=== PATIENT | male | born 1960 | race Hispanic/Latino ===

== ENCOUNTER 2021-02-18 09:47 | Day surgery (SDC) | payer BC ==
[2021-02-18] MEDS: LIDOCAINE 1% MPF 30 ML VIAL ONE ×2 (10:05→10:50)
[2021-02-18] MEDS: HEPARIN 5000 UNIT/ML 1 ML VIAL ONE ×3 (10:07→11:06)
[2021-02-18 10:13] VITALS: O2SAT 100
[2021-02-18] MEDS: CEFAZOLIN/NS 1gm 1 GM/50 ML BAG ONE ×3 (10:18→10:37)
[2021-02-18] MEDS ORDERED: NS 0.9% VIAL 20 ML ONE (10:26)
[2021-02-18] MEDS ORDERED: ACETAMINOPHEN 500 MG TAB ONE (10:33)
[2021-02-18] MEDS ORDERED: NA CHLORIDE 0.9% 1,000 ML ONE (10:33)
--- NOTE | 2021-02-18 11:33 | RAD REPORT ---
EXAM DESCRIPTION: RAD - Fluoroscopy <1 Hour - 02/18/2021 11:21 am CLINICAL HISTORY: Device placement central venous catheter placement FINDINGS: A central venous catheter was placed into the superior vena cava.4 fluoroscopic spot image s are submitted. The examination was performed by Dr. Epperson Fluoroscopy time 0.3 minutes
--- NOTE | 2021-02-18 11:44 | RAD REPORT ---
EXAM DESCRIPTION: KIMBERLIWoodt Single View02/18/2021 11:39 am CLINICAL HISTORY: Device placement/central venous catheter placement IMPRESSION: Central venous catheter with its tip in the superior vena cava No pneumothorax
--- NOTE | 2021-02-18 11:55 | OP ---
Date of Procedure: 02/18/2021 Surgeon: Rohit Epperson MD Fisheries Specialist: JIGAR Priest Preoperative Diagnosis: Rectal cancer. Postoperative Diagnosis: Rectal cancer. Procedure: Placement of right IJ Port-A-Cath and interpretation of intraoperative fluoroscopy. Estimated Blood Loss: Minimal. Specimen: None. Findings: Normal anatomy. Anesthesia: General. Complications: None. Disposition: The patient tolerated the procedure in stable condition and taken to Recovery in good g eneral condition. Procedure In Detail: The patient was brought to the OR and placed in supine position. General anest hesia begun. The patient was prepped and draped in usual sterile fashion. Lidocaine 1% infiltrated locally. An 18-gauge needle was used to access the right IJ vein. Guidewire was passed. Position w as confirmed with fluoroscopy. A 3 cm counter incision was made on the right anterior chest. Pocket created. Tunneling device was used to tunnel the catheter between the 2 wounds. Seldinger techniqu e was used and tip of the catheter placed in the SVC under direct vision and fluoroscopy and then cut to appropriate size and attached to the Port-A-Cath device. Port-A-Cath device was attached to the subcutaneous tissue with 0 Vicryl and then 3-0 chromic used to approximate the subcutaneous tissue an d close the skin. Port aspirated of blood, flushed with heparin, and then packed with heparin. Ster ile dressing applied. The patient was awakened and taken to Recovery in good general condition. [place] st x-ray has been ordered. If the chest x-ray is negative, the patient will be discharged to home. Disposition: Home. Condition: Stable. Discharge Instructions: Resume home medications and diet. Activity as tolerated. No heavy lifting. Remove outer dressing in 2-3 days. Shower. Keep Steri-Strips on at all times. Follow up in [place] in 2 weeks. Call for appointment and follow up with Dr. Henry next week for chemotherapy. /FOREST Voice ID: [id number] Report ID: [id number]
[2021-02-18 12:49] VITALS: BP 158/84; TEMP 96.8
== END 2021-02-18 12:53 | disposition home or self-care (01) ==
LOC: OR 09:47
PROVIDERS: ATTEND Surgery
PROC: 0JH60WZ Insertion of Totally Implantable Vascular Access Device into Chest Subcutaneous Tissue and Fascia, Open Approach (ICD-10-PCS; principal; 2021-02-18 10:30)
DX: C19 Malignant neoplasm of rectosigmoid junction (principal); Z20.822 Contact with and (suspected) exposure to COVID-19
CPT/HCPCS: 71045; 76000; 82947; 93005; C1788; J0690; J1644; J7030; U0003

== ENCOUNTER 2021-06-30 08:45 | Day surgery (SDC) | payer BC, OTHER ==
[2021-06-30] MEDS ORDERED: NA CHLORIDE 0.9% 1,000 ML ONE (09:14)
[2021-06-30 09:38] LABS: Protime INR 1.07
[2021-06-30 10:11] VITALS: O2SAT 100; BMI 28.7
[2021-06-30] MEDS ORDERED: FENTANYL CITR 100 MCG/2 ML ONE (10:50)
[2021-06-30] MEDS ORDERED: MIDAZOLAM HCL 2 MG/2 ML INJ ONE ×2 (10:50→10:51)
[2021-06-30 15:00] VITALS: TEMP 98
[2021-06-30 15:13] VITALS: BP 119/52
--- NOTE | 2021-06-30 15:15 | RAD REPORT ---
EXAM DESCRIPTION: CT - Renal Biopsy CT - 06/30/2021 11:53 am CLINICAL HISTORY: renal disease COMPARISON: No comparisons FINDINGS: Preoperative diagnosis: Proteinuria, renal disease Post operative diagnosis: Same Conscious Sedation: None. Patient was continuously monitored by nursing staff. Contrast used: NONE Estimated blood loss: less than 5 mL Specimens: 3 x 18 gauge specimens of the right kidney The patient was placed prone on the table and the right flank area was prepped and draped in the usua l sterile fashion. 1% lidocaine was infiltrated into the subcutaneous tissues for local anesthesia. U nder computed tomographic guidance, a 17 gauge introducer was advanced into the lesion. Subsequently, a 18 gauge, 16 cm long, 20 mm throw core biopsy gun was advanced into the right kidney and 3 cores w ere obtained. Postprocedure imaging demonstrated no complications. Samples were given to pathology for analysis. Th e patient tolerated the procedure without immediate complication and transferred to the recovery room in stable condition. IMPRESSION: 1. Technically successful CT guided right random renal biopsy. 2. No immediate complications. All CT scans are performed using dose optimization technique as appropriate and may include automated exposure control or mA/KV adjustment according to patient size.
== END 2021-06-30 15:14 | disposition home or self-care (01) ==
LOC: DS 08:45
PROVIDERS: ATTEND Internal Medicine
DX: N26.9 Renal sclerosis, unspecified (principal); N17.9 Acute kidney failure, unspecified; B20 Human immunodeficiency virus [HIV] disease
CPT/HCPCS: 36415; 85610; 88300; 50200; J2250; J3010; J7030